=== PATIENT | female | born 1980 | race Caucasian/White ===

== ENCOUNTER → 2022-06-04 | Outpatient (CLI) | payer OTHER | LOC: COL.RAD 09:53 | DX: R10.11 Right upper quadrant pain (principal) | CPT/HCPCS: A9537; J2805 ==

== ENCOUNTER → 2022-10-08 | Outpatient (CLI) | payer OTHER | LOC: COL.CARD 12:46 | DX: R40.0 Somnolence (principal); R94.01 Abnormal electroencephalogram [EEG]; Z87.898 Personal history of other specified conditions ==

== ENCOUNTER 2023-12-07 08:01 | Day surgery (SDC) | payer OTHER ==
[~2023-12-07] VITALS: Ht 165.1 cm; Wt 79.2 kg
[~2023-12-07 08:01] MED LIST: AMITRIPTYLINE H10 M1 PO; AMITRIPTYLINE H25 M1 PO; KEPPRA 500MG500 MG PO; LR 1,000 ML IV SCH; Ondansetron 4 MG/2 ML VIAL IV PRN; ZANAFLEX CAPSULE2 MG PO; ZYRTEC 10MG10 MG PO
[2023-12-07] MEDS ORDERED: PRIL40 PO (08:25)
[2023-12-07] MEDS ORDERED: KLONOPIN 0.5MG0.5 MG PO (08:27)
[2023-12-07] MEDS ORDERED: VITAMIND3 5000 PO (08:28)
[2023-12-07] MEDS ORDERED: PROBIOTIC BLEN1 EACH PO (08:29)
[2023-12-07] MEDS ORDERED: BOTOX 100100 U/VIAL IM (08:30)
[2023-12-07 08:41] VITALS: BP 99/69; PULSE 69; TEMP 97.4
[2023-12-07] MEDS ORDERED: Lidocaine PF 2% (20 MG/ML) 5 ML VIAL ONE (09:01)
[2023-12-07 09:30] VITALS: BP 112/70; PULSE 64; TEMP 98.1
[2023-12-07 09:45] VITALS: BP 101/72; PULSE 61
--- NOTE | 2023-12-07 09:58 | NUR ---
0930- PATIENT RETURNS TO [facility] [place] [place] [facility] VIA CART. PT AWAKE AND ALERT. RESPIRATIONS UNLABORED. AMBULATED TO RECLINER CHAIR WITH 2:1 SBA. PT DENIES NAUSEA OR ABDOMINAL PAIN. HOOKED UP TO MONITOR AND VS OBTAINED. CALL LIGHT AT SIDE. 0936- PATIENT TOLERATING COFFEE AND MUFFIN WITHOUT NAUSEA OR DIFFICULTY SWALLOWING. 0940- DR. SETH IN ROOM SPEAKING WITH PATIENT AND WITH PATIENT'S ON THE PHONE. HE NEEDED TO STAY IN THE CAR WITH KIDS. 0949- D/C INSTRUCTIONS REVIEWED WITH PATIENT. PT VERBALIZED UNDERSTANDING AND A COPY OF INSTRUCTIONS PROVIDED IN D/C FOLDER. 0953- PATIENT DRESSES SELF. 0958- PATIENT DISCHARGED FROM UNIT VIA W/C TO A PERSONAL VEHICLE. PT LEFT HOSPITAL IN STABLE CONDITION.
--- NOTE | 2023-12-07 14:53 | NUR ---
0815 Patient ambulatory to [facility] with a steady gait, breathing even and unlabored. Patient is alert and oriented. Consents reviewed and signed by patient. IV established. LR infusing via gravity at KVO, Call light in reach. Warm blanket provided.
== END 2023-12-07 09:58 | disposition home or self-care (01) ==
LOC: SDCO 08:01
DX: K21.00 Gastro-esophageal reflux disease with esophagitis, without bleeding (principal); Z79.899 Other long term (current) drug therapy; Z79.01 Long term (current) use of anticoagulants; Z86.718 Personal history of other venous thrombosis and embolism
CPT/HCPCS: J2704; J7120